=== PATIENT | male | born 1945 | race American Indian/Alaskan Native ===

== ENCOUNTER 2021-04-03 02:58 | Emergency (ER) | payer MEDICARE ==
[2021-04-03 04:11] VITALS: BP 176/77
--- NOTE | 2021-04-03 04:27 | Emergency Department Report ---
ED Allergic Reaction HPI - General Chief complaint: Allergic Reaction Stated complaint: TONGUE SWELLING Time Seen by Provider: 04/03/21 04:22 Source: patient Mode of arrival: Ambulatory Limitations: No Limitations - History of Present Illness Initial Comments: Patient is a 75-year-old male that presents to the emergency room with complaints of tongue swelling. Patient was sent here from a [facility]. At the [facility], the patient was given Pepcid, Solu-Medrol and Benadryl. Patient states that his tongue swelling has improved. Patient denies difficulty breathing. Patient states he still having difficulty swallowing but it has improved. Patient denies chest pain. Patient denies shortness of breath. Patient denies fever and chills. Patient denies nausea vomiting. Patient states he is talking better. Patient states his symptoms have improved since arriving in the hospital and he received the medications. Patient was brought in by EMS. Patient denies recent travel. Patient denies recent international travel. Patient denies exposure to the novel coronavirus. Patient denies sick contacts. Patient denies fever and chills. Patient denies cough. Patient denies diarrhea. Patient denies coming in contact with anybody with symptoms of the novel coronavirus. MD Complaint: allergic reaction -: Sudden Exposure: unknown Symptoms: orolingual swelling Treatment Prior to Arrival: benadryl, steroids, other Previous Allergy History: none - Related Data Previous Rx's Medication Instructions Recorded Last Taken Type EPINEPHrine [Epipen 2-Jarvis] 0.3 mg IM DAILY PRN #1 ml 04/03/21 Unknown Rx methylPREDNISolone [Medrol 4MG 4 mg PO DAILY 6 Days #1 tab.ds.pk 04/03/21 Unknown Rx DOSEPAK (21 tabs)] Allergies Allergy/AdvReac Type Severity Reaction Status Date / Time No Known Allergies Allergy Unverified 04/03/21 06:14 ED Review of Systems ROS: Stated complaint: TONGUE SWELLING Other details as noted in HPI Constitutional: denies: chills, fever Eyes: denies: eye pain, eye discharge, vision change ENT: denies: ear pain, throat pain Respiratory: denies: cough, shortness of breath, wheezing Cardiovascular: denies: chest pain, palpitations Endocrine: no symptoms reported Gastrointestinal: denies: abdominal pain, nausea, diarrhea Genitourinary: denies: urgency, dysuria Musculoskeletal: denies: back pain, joint swelling, arthralgia Skin: denies: rash, lesions Neurological: denies: headache, weakness, paresthesias Psychiatric: denies: anxiety, depression Hematological/Lymphatic: denies: easy bleeding, easy bruising ED Past Medical Hx - Past Medical History Previous Medical History?: Yes Hx Hypertension: Yes - Surgical History Past Surgical History?: Yes Additional Surgical History: Ankle - Family History Family history: no significant - Social History Smoking Status: Never Smoker Substance Use Type: None - Medications Home Medications: Home Medications Medication Instructions Recorded Confirmed Last Taken Type EPINEPHrine [Epipen 2-Jarvis] 0.3 mg IM DAILY PRN #1 ml 04/03/21 Unknown Rx methylPREDNISolone [Medrol 4MG 4 mg PO DAILY 6 Days #1 tab.ds.pk 04/03/21 Unknown Rx DOSEPAK (21 tabs)] ED Physical Exam - General Limitations: No Limitations General appearance: alert, in no apparent distress - Head Head exam: Present: atraumatic, normocephalic - Eye Eye exam: Present: normal appearance - ENT ENT exam: Present: mucous membranes moist, other (Severe tongue swelling noted.) - Neck Neck exam: Present: normal inspection - Respiratory Respiratory exam: Present: normal lung sounds bilaterally. Absent: respiratory distress - Cardiovascular Cardiovascular Exam: Present: regular rate, normal rhythm. Absent: systolic murmur, diastolic murmur, rubs, gallop - GI/Abdominal GI/Abdominal exam: Present: soft, normal bowel sounds - Rectal Rectal exam: Present: deferred - Extremities Exam Extremities exam: Present: normal inspection - Back Exam Back exam: Present: normal inspection - Neurological Exam Neurological exam: Present: alert, oriented X3 - Psychiatric Psychiatric exam: Present: normal affect, normal mood - Skin Skin exam: Present: warm, dry, intact, normal color. Absent: rash ED Course Vital Signs 04/03/21 04/03/21 03:57 05:47 Temperature 98.6 F Pulse Rate 91 H Respiratory 18 16 Rate Blood Pressure 176/77 O2 Sat by Pulse 96 Oximetry - Reevaluation(s) Reevaluation #1: Patient states that all of his symptoms have resolved. Patient states he is feeling much better. Patient states he does not want to stay in the hospital. Patient refused to stay in the hospital. I discussed the risk with patient. Patient voiced understanding of the risk. Patient signed AMA form. Even though the patient is leaving the hospital AGAINST MEDICAL ADVICE, the patient will be given official discharge.. I discussed all results and clinical findings with patient. I discussed plan of care with patient. Patient agrees with plan of care. Patient will be discharg ed home. Patient given discharge instructions. Patient voiced understanding of discharge instructions. 04/03/21 06:09 - Consultations Consultation #1: I discussed the case with Matthew and Dr. Reynoso recommends admission here. 04/03/21 05:54 ED Medical Decision Making - Lab Data Result diagrams: 04/03/21 05:02 04/03/21 05:02 - Medical Decision Making Patient is a 75-year-old male that presents to the emergency room with difficulty swallowing and tongue swelling. Patient was seen at a [place] [facility] and sent to the emergency room for evaluation after the patient was given Solu-Medrol Pepcid and Benadryl. Patient states he initially had minimal response and as well he called the ambulance. Patient states that while waiting in the waiting room the symptoms and the tongue swelling has improved. I discussed the case with [facility] and they recommended admission for observation here. Patient to be admitted to the hospital service however the patient refused admission. Patient states he is feeling much better. I discussed the risk with the patient and the patient states he still does not want to be admitted. Patient voiced understanding of the risk. Patient signed AMA form. The patient is leaving AGAINST MEDICAL ADVICE, the patient still given a formal discharge. Critical care time documented due to the multiple reassessments, prolonged time at the bedside, interpretation of diagnostics and labs. - Differential Diagnosis Tongue swelling, angioedema, difficulty swallowing Critical Care Time: Yes Critical care time in (mins) excluding proc time.: 35 Critical care attestation.: If time is entered above; I have spent that time in minutes in the direct care of this critically ill patient, excluding procedure time. Critical Care Time: 35 MINUTES ED Disposition Clinical Impression: Tongue swelling Difficulty swallowing Qualifiers: Dysphagia type: unspecified Qualified Code(s): R13.10 - Dysphagia, unspecified Angioedema Qualifiers: Encounter type: initial encounter Qualified Code(s): T78.3XXA - Angioneurotic edema, initial encounter Disposition: LEFT AGAINST MED ADVICE Is pt being admited?: No Does the pt Need Aspirin: No Condition: Critical Instructions: Angioedema, [id number] Additional Instructions: Patient to follow-up with primary care in 2 to 3 days. Patient to follow-up with sash finisher in 2 to 3 days. Patient to rest. Patient to increase water. Patient to avoid strenuous exercise or heavy lifting until cleared by sash finisher and primary care. Patient to take Tylenol or ibuprofen as needed for pain. Patient to take meds as directed. Patient to return to the ER if condition worsens, changes or new symptoms arise. Prescriptions: EPINEPHrine [Epipen 2-Jarvis] 0.3 mg IM DAILY PRN #1 ml PRN Reason: Allergic Reaction methylPREDNISolone [Medrol 4MG DOSEPAK (21 tabs)] 4 mg PO DAILY 6 Days #1 tab.ds.pk Referrals: PRIMARY CARE, [Primary Care Provider] - 2-3 Days Time of Disposition: 05:56
[2021-04-03 05:11] LABS: Hematocrit 45.8 % (35.5-45.6); Hemoglobin 15.3 gm/dl (11.8-15.2); Mean Corpuscular HGB Conc 34 % (32-34); Mean Corpuscular Volume 84 fl (84-94); Platelet Count 163 K/mm3 (140-440); Red Blood Count 5.44 M/mm3 (3.65-5.03); Red Cell Distribution Width 14.4 % (13.2-15.2)
[2021-04-03 05:49] LABS: Alanine Aminotransferase 28 units/L (7-56); Albumin 4.8 g/dL (3.9-5); BUN/Creatinine Ratio 13; Blood Urea Nitrogen 13 mg/dL (9-20); Calcium 10.1 mg/dL (8.4-10.2); Hemolysis Index 9
== END 2021-04-03 06:25 | disposition left against medical advice (07) ==
LOC: ED 02:58
DX: R13.10 Dysphagia, unspecified (principal); T78.3XXA Angioneurotic edema, initial encounter; I10 Essential (primary) hypertension; Z79.899 Other long term (current) drug therapy
CPT/HCPCS: 36415; 80053; 85027; 99283